=== PATIENT | female | born 1960 | race Caucasian/White ===

== ENCOUNTER → 2024-04-19 | Outpatient (CLI) | payer MEDICARE, OTHER, SELFPAY ==
--- NOTE | 2024-04-19 | XR_ITS ---
Examination: Hand, left 3 views Technique: Hand AP, oblique, lateral 3 views Date and time of exam: April 19, 2024 1242 hours INDICATIONS: Injury to the hand today, hand pain. FINDINGS: Severe osteopenia No acute fracture No dislocation Significant arthritic change first carpometacarpal joint IMPRESSION: No acute fracture
--- NOTE | 2024-04-19 | XR_ITS ---
Examination: Wrist, right 3 views Technique: Wrist AP, oblique, lateral 3 views Date and time of exam: April 19, 2024 1242 hours INDICATIONS: Injured the wrist today, wrist pain. FINDINGS: Prominent osteopenia. No acute fracture No dislocation IMPRESSION: No acute fracture Significant arthritic change first carpometacarpal joint
--- NOTE | 2024-04-19 | XR_ITS ---
Examination: Forearm, left, 2 views. Technique: Forearm, AP, lateral 2 views Date and time of exam: April 19, 2024 1242 hours INDICATIONS: Injury to the forearm today, forearm pain. FINDINGS: Prominent osteopenia No acute fracture No dislocation IMPRESSION: No acute fracture
== END | disposition home or self-care (01) ==
PROVIDERS: PCP Nurse Practitioner Family; Referring Provider Nurse Practitioner Family; Visit Provider Nurse Practitioner Family
DX: M13.842 Other specified arthritis, left hand (principal); S69.92XA Unspecified injury of left wrist, hand and finger(s), initial encounter; S59.912A Unspecified injury of left forearm, initial encounter; X58.XXXA Exposure to other specified factors, initial encounter
CPT/HCPCS: 73090; 73110; 73130

== ENCOUNTER → 2024-04-22 | Outpatient (CLI) | payer MEDICARE, OTHER, SELFPAY ==
--- NOTE | 2024-04-22 15:00 | XR_ITS ---
Examination: Ultrasound soft tissue left lower leg TECHNIQUE: By resolution grayscale sonographic images soft tissue left lower leg Exam date and time: April 22, 2024 1518 hours INDICATIONS: Palpable lump left lower leg noticed beginning 3 weeks 6 FINDINGS: No cystic or solid mass noted IMPRESSION: No cystic or solid mass noted Consider MRI lower leg without contrast follow-up as clinically warranted
== END | disposition home or self-care (01) ==
LOC: CDIM 14:55
PROVIDERS: PCP Family Medicine; Referring Provider Family Medicine; Visit Provider Family Medicine
DX: D17.0 Benign lipomatous neoplasm of skin and subcutaneous tissue of head, face and neck (principal)
CPT/HCPCS: 76882

== ENCOUNTER → 2024-05-10 | Outpatient (CLI) | payer MEDICARE, OTHER, SELFPAY ==
--- NOTE | 2024-05-10 09:31 | XR_ITS ---
Examination: Knee, left , 3 views Technique: Knee AP, lateral, oblique 3 views Date and time of exam: May 10, 2024 0940 hours INDICATIONS: Patient fell yesterday with injury to the knee, knee pain. FINDINGS: Prominent osteopenia Acute fracture inferior patella, 3 mm separation at the fracture site Blood in the joint space IMPRESSION: Acute fracture inferior patella
--- NOTE | 2024-05-10 09:32 | XR_ITS ---
Examination: Tibia-Fibula, left , 2 views Technique: Tibia-fibula AP lateral 2 views Date and time of exam: May 10, 2024 0940 hours INDICATIONS: Patient fell yesterday with injury to lower leg, lower leg pain. FINDINGS: Prominent osteopenia. No acute fracture No dislocation IMPRESSION: No acute tibia fibular fracture Please see the knee report today describing patellar fracture
== END | disposition home or self-care (01) ==
LOC: CDIM 09:22
PROVIDERS: PCP Family Medicine; Referring Provider Nurse Practitioner Family; Visit Provider Nurse Practitioner Family
DX: S82.002A Unspecified fracture of left patella, initial encounter for closed fracture (principal); W19.XXXA Unspecified fall, initial encounter
CPT/HCPCS: 73562; 73590

== ENCOUNTER 2024-07-02 18:20 | Emergency (ER) | payer MEDICARE, OTHER, SELFPAY ==
[2024-07-02 18:29] VITALS: BP 136/84; PULSE 80; RESP 19; TEMP 36.6; O2SAT 96
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
[2024-07-02 19:09] VITALS: PULSE 84; RESP 18; O2SAT 98
[2024-07-02 19:24] VITALS: BMI 19.8
--- NOTE | 2024-07-02 19:50 | PC.NURSE ---
Pt arives to rm handcuffed to primitivo. pt yelling at officers, ED staff and ED MD. pts speech is slurred. pt aggressive, agitated pushing officer and demanding her purse and cell phone. pt only yelling and verbaly abusive to who ever attempts to speak with her. Pt demanded to go to the bathroom. However is thrashing about yelling and cussing at officeres. Pt asked for a bedpan. Female staff entered room and offered bedpan, however refused and began verbaly abuseing ED staff . pt refuseing all treatment. on ASSESSMENT Phas no bruising, swelling, redness deformity abrasions to head neck face chest and arms. pt was belligerent, yelling, verbally abusing and thrashing about pulling on handcuffs.PERRLA...
[2024-07-02 20:02] VITALS: PULSE 89; RESP 18; O2SAT 99
== END 2024-07-02 20:08 ==
PROVIDERS: Emergency Provider Emergency Medicine
DX: Z02.89 Encounter for other administrative examinations (principal); R45.1 Restlessness and agitation
CPT/HCPCS: 99281

== ENCOUNTER → 2024-11-13 | Outpatient (CLI) | payer MEDICARE, OTHER, SELFPAY ==
[2024-11-13 15:37] LABS: Basophils # (Auto) 0.1 Thou/mm3 (0.0-0.2); Basophils % (Auto) 1 % (0-2.5); Eosinophils # (Auto) 0.2 Thou/mm3 (0.0-0.5); Eosinophils % (Auto) 3 % (0-10); Hematocrit 39.4 % (36.0-46.0); Hemoglobin 13.3 g/dL (12.0-16.0); Immature Granulocytes Auto 0.04 Thou/mm3 (0.00-0.00); Lymphocytes # (Auto) 2.6 Thou/mm3 (1.0-4.8); Lymphocytes % (Auto) 43 % (10-50); Mean Corpuscular HGB Conc 33.8 g/dl (31.0-37.0); Mean Corpuscular Hemoglobin 34.3 pg (25.0-35.0); Mean Corpuscular Volume 102 fL (80-100); Monocytes # (Auto) 0.5 Thou/mm3 (0.0-0.8); Monocytes % (Auto) 8 % (0-12); Neutrophils # (Auto) 2.7 Thou/mm3 (1.8-7.7); Neutrophils % (Auto) 44 % (37-80); Nucleated Red Blood Cell # 0.03 Thou/mm3 (0.00-0.00); Nucleated Red Blood Cell % 1 /100 WBC (0); Platelet Count 171 Thou/mm3 (140-440); RDW Standard Deviation 59.7 fL (36.4-46.3); Red Blood Count 3.88 Miln/mm3 (4.00-5.20); White Blood Count 6.1 Thou/mm3 (3.6-11.0)
[2024-11-13 15:48] LABS: Alanine Aminotransferase 20 U/L (10-49); Albumin, Serum 4.2 gm/dL (3.4-4.8); Albumin/Globulin Ratio 2.1 (1.2-2.2); Alkaline Phosphatase 62 U/L (46-116); Anion Gap 6 (7-16); Aspartate Amino Transferase 23 U/L (0-34); BUN/Creatinine Ratio 9 Ratio (12-20); Bilirubin,Total 0.6 mg/dL (0.3-1.2); Blood Urea Nitrogen 8 mg/dL (9-23); Calcium 9.4 mg/dL (8.3-10.6); Calcium (Corrected) 9.4 mg/dL (8.5-10.1); Carbon Dioxide 24.1 mMol/L (20.0-31.0); Chloride 113 mMol/L (98-107); Creatinine (Component) 0.9 mg/dL (0.6-1.3); Globulin 2.0 gm/dL (2.3-3.5); Glucose 89 mg/dL (74-106); Osmolality,Calculated 282 (275-295); Potassium 3.9 mMol/L (3.4-5.1); Sodium 143 mMol/L (136-145); T4 (Thyroxine) 9.0 mcg/dL (4.5-10.9); Thyroid Stimulating Hormone 0.14 uIU/mL (0.55-4.78); Total Protein 6.2 gm/dL (5.7-8.2); eGFR > 60 See Note
== END | disposition home or self-care (01) ==
LOC: COPL 13:55
PROVIDERS: PCP Family Medicine; Referring Provider Family Medicine; Visit Provider Family Medicine
DX: E03.9 Hypothyroidism, unspecified (principal); G35 Multiple sclerosis
CPT/HCPCS: 36415; 80053; 84436; 84443; 85025

== ENCOUNTER 2024-11-16 11:18 | Emergency (ER) | payer MEDICARE, OTHER, SELFPAY ==
--- NOTE | 2024-11-16 11:19 | XR_ITS ---
Examination: Fingers, right 3 views Technique: AP, oblique, lateral views right first digit. Exam date and time: November 16, 2024, 1146 hrs. Indications: Injury to the hand 2 days ago with first digit pain Findings: Severe osteopenia No acute fracture No dislocation No foreign body Old fracture deformity fifth metacarpal Impression: No acute fracture
--- NOTE | 2024-11-16 11:19 | XR_ITS ---
Examination: Wrist, right 3 views Technique: Wrist AP, oblique, lateral 3 views Date and time of exam: November 16, 2004 1148 hrs. Indications: Injury to the wrist 2 days ago with wrist pain. Findings: Prominent osteopenia No acute fracture. No dislocation Impression: No acute fracture
--- NOTE | 2024-11-16 11:21 | PD.EDANIML ---
ED Animal Bite RME/HPI General Chief Complaint: Animal Bite Stated Complaint: Aminah bite to right hand, smashed right thumb Time Seen by Provider: 11/16/24 11:19 Source: patient Arrival date/time: 11/16/24 11:18 Mode of arrival: ambulatory Limitations: no limitations RME / HPI RME / HPI narrative: 64 year old female here today with 2 complaints. 1. Right thumb injury yesterday patient states she was trying to move a mattress in her trailer, it got caught, and she developed diffuse swelling and pain at her thumb. 2. Cat bite right wrist yesterday. She has right wrist pain, erythema, and swelling. She does not recall her last tetanus shot. Related Data Home Medications ?Medication ?Instructions ?Recorded ?Confirmed levetiracetam 500 mg tablet 500 mg PO QDAY #0 tabs 05/01/17 03/30/21 (Keppra) zolpidem 10 mg tablet (Ambien) 10 mg PO HS #0 tabs 05/01/17 03/30/21 Held on 03/30/21. Instructions: Resume on 03/31/21. levothyroxine 100 mcg capsule 110 mcg PO QDAY 03/18/21 03/30/21 (Tirosint) Previous Rx's ?Medication ?Instructions ?Recorded lidocaine 5 % topical patch 1 patch topical QDAY PRN pain #15 07/11/23 ea amoxicillin 875 mg-potassium 1 tab PO BID #14 tabs 11/16/24 clavulanate 125 mg tablet hydrocodone 5 mg-acetaminophen 325 1 tab PO Q8H PRN pain #7 tabs 11/16/24 mg tablet ibuprofen 600 mg tablet 600 mg PO TID PRN pain #20 tabs 11/16/24 Allergies Allergy/AdvReac Type Severity Reaction Status Date / Time gluten Allergy Severe Rash Verified 11/16/24 11:23 latex Allergy Severe Hives Verified 11/16/24 11:23 tizanidine Allergy Severe BLOOD Verified 11/16/24 11:23 PRESSURE LOWERS corn Allergy Mild Rash Verified 11/16/24 11:23 montelukast Allergy Mild Rash Verified 11/16/24 11:23 wheat Allergy Mild Gastrointestinal Verified 11/16/24 11:23 Upset almond Allergy Unknown TONGUE Verified 11/16/24 11:23 SWELLING, RASH soy Allergy Unknown TONGUE Verified 11/16/24 11:23 SWELLING, RASH Review of Systems Review of Systems Systems Reviewed: All systems reviewed, normal except as documented ED Exam General Limitations: Present no limitations General appearance: Present alert and in no apparent distress Head Head exam: Present atraumatic Eye Eye exam: Present normal appearance, PERRL and EOMI ENT ENT exam: Present normal exam, normal oropharynx and mucous membranes moist Neck Neck exam: Present normal inspection, full ROM and trachea midline Chest Chest inspection: Present normal inspection and symmetric chest wall rise Respiratory Respiratory exam: Present normal lung sounds bilaterally Cardiovascular Cardiovascular exam: Present regular rate, normal rhythm and normal heart sounds Abdominal Exam Abdominal exam: Present soft and normal bowel sounds Extremities Exam Extremities exam: Present normal inspection and full ROM Back Exam Back exam: Present normal inspection and full ROM Neurological Exam Neurological exam: Present alert and oriented X3 Psychiatric Psychiatric exam: Present normal affect and normal mood Skin Skin exam: Present warm, dry and other (Small, pinpoint, puncture wounds at the dorsal aspect of the right wrist with surrounding erythema and mild edema. No fluctuance or discharge. The right thumb is mildly edematous with purple discoloration. Skin surface is intact.) Course Quality Measures none Orders Category Date Time Status Splint / Immobilizer STAT Care 11/16/24 13:09 Active XR finger RT min 2V Stat Exams 11/16/24 11:19 Completed XR wrist comp RT min 3V Stat Exams 11/16/24 11:19 Completed CBC Stat Lab 11/16/24 12:06 Completed CMP [Comprehensive Metabolic Panel] Stat Lab 11/16/24 12:06 Completed CRP [C-Reactive Protein] Stat Lab 11/16/24 12:06 Completed Amoxicillin/Pot Clav 875 [Augmentin 875] Med 11/16/24 11:19 Discontinued 1 tab PO X1 ONE HYDROcodone*/APAP 5/325 [Leakey 5/325] Med 11/16/24 11:19 Discontinued 1 tab PO X1 ONE TET,DIP/PERT AC (Adult)-Tdap [Boostrix Adult (Tdap) Med 11/16/24 11:19 Discontinued Vacc] 0.5 ml IMI .ONCE ONE Vital Signs Vital signs: Vital Signs Temperature 97.8 F 11/16/24 11:36 Pulse Rate 76 11/16/24 11:36 Respiratory Rate 18 11/16/24 11:36 Blood Pressure 133/78 H 11/16/24 11:36 Pulse Oximetry (%) 98 11/16/24 11:36 Oxygen Delivery Method Room Air 11/16/24 11:36 Animal Bite MDM Narrative MDM Narrative:: 62-year-old female is here today with 2 separate injuries. She injured her thumb while try to move a mattress in her trailer. She also was bitten by her cat on her right wrist. Plain films were obtained, no acute osseous injury is noted. No soft tissue gas is present. Patient is placed in a thumb spica splint. Post-splint application reveals intact CMS. She was given Leakey for pain. She was started on Augmentin. She agrees to follow-up in clinic next week for close recheck. We discussed close return precautions. She is return as needed for any worsening or emergent changes. Patient data External records reviewed:: None Clinical information provided by:: patient and family Social determinants that could affect healthcare access:: none Patient has the following chronic illnesses:: Hypothyroidism How is presenting disease/condition affected by chronic disease/condition?: uneffected by Evaluation data The following diagnostics were reviewed and interpreted by me:: lab results and radiology exam(s) Lab and/or radiology exams considered but not ordered:: n/a Interpretation Summary: No acute osseous injury. No soft tissue gas Medications / Prescriptions Medications or Prescriptions considered but not ordered:: n/a Medication administrations:: Medication Administration History Discontinued Medications Hydrocodone Bitart/Acetaminophen (Hydrocodone/Apap 5/325 Tablet) 1 tab PO X1 ONE Stop: 11/16/24 11:20 Last Admin: 11/16/24 11:31 Dose: 1 tab Documented By: ED Amoxicillin/Clavulanate Potassium (Amoxicillin/Pot Clav 875 Tablet) 1 tab PO X1 ONE Stop: 11/16/24 11:20 Last Admin: 11/16/24 11:32 Dose: 1 tab Documented By: ED Diphtheria/Tetanus/Acell Pertussis (Diphth,Pertuss(Acell),Tet Vac 0.5 Ml Syr- Adult) 0.5 ml IMi .ONCE ONE Stop: 11/16/24 11:20 Last Admin: 11/16/24 11:32 Dose: 0.5 ml Documented By: ED See above Consultations Consultation(s) initiated? (list below): No Diagnosis Differential diagnosis animal bite: bite by animal and cat bite Most likely diagnosis given after review of the tests above:: Cat bite, cellulitis, thumb contusion Admission Indicated Admission indicated?: not indicated Admission Request Was there a request for admission?: No Disposition Plan Disposition Plan: Discharge Discharge Attestation Discharge Attestation: The patient and all family members were given an opportunity to ask questions and understood the discharge instructions. Discharge instructions specifically effects, indications for sooner follow up or return to the emergency department, and the expected course of current diagnosis. Patient condition: Stable Discharge Plan Plan Patient Disposition: HOME (Self Care) Patient condition on transfer: Stable Prescriptions/Referrals Prescriptions/Med Rec: New amoxicillin-pot clavulanate 875-125 mg tablet 1 tab PO BID Qty: 14 0RF ibuprofen 600 mg tablet 600 mg PO TID PRN (Reason: pain) Qty: 20 0RF hydrocodone-acetaminophen 5-325 mg tablet 1 tab PO Q8H MDD 3 PRN (Reason: pain) Qty: 7 0RF No Action levetiracetam [Keppra] 500 MG tablet 500 mg PO QDAY Qty: 0 zolpidem [Ambien] 10 MG tablet 10 mg PO HS Qty: 0 levothyroxine [Tirosint] 100 mcg capsule 110 mcg PO QDAY lidocaine 5 % adhesive patch,medicated 1 patch topical QDAY PRN (Reason: pain) Qty: 15 0RF Rx Instructions: leave on most painful area for up to 12 hrs Referrals: Leatha Clancy MD [Primary Care Provider] - In 1 week Problem List Clinical Impression: Contusion of right thumb, Cat bite, Cellulitis of right wrist Patient/Caregiver Discharge Instructions Education Materials: ED Cat Bite, ED Cellulitis, ED Contusion, Upper Extremity Additional Instructions: - Use the provided splint and medications. - Apply frequent warm compress. - Please return to the emergency room at anytime for any worsening changes. - Otherwise follow-up with your primary clinic next week for close recheck. Print Language: Cameroonian Stand Alone Forms: [employer] Award Info., Patient Portal Info Letter
[2024-11-16] MEDS: HYDROcodone/APAP 5/325 TABLET 1 TAB PO (11:31)
[2024-11-16] MEDS: AMOXICILLIN/POT CLAV 875 TABLET 1 TAB PO (11:32)
[2024-11-16] MEDS: DIPHTH,PERTUSS(ACELL),TET VAC 0.5 ML SYR- ADULT IMi (11:32)
[2024-11-16 11:36] VITALS: BP 133/78; PULSE 76; RESP 18; TEMP 36.6; O2SAT 98; BMI 19.5
[2024-11-16 12:15] LABS: Basophils # (Auto) 0.1 Thou/mm3 (0.0-0.2); Basophils % (Auto) 1 % (0-2.5); Eosinophils # (Auto) 0.1 Thou/mm3 (0.0-0.5); Eosinophils % (Auto) 2 % (0-10); Hematocrit 39.0 % (36.0-46.0); Hemoglobin 13.7 g/dL (12.0-16.0); Immature Granulocytes Auto 0.04 Thou/mm3 (0.00-0.00); Lymphocytes # (Auto) 2.3 Thou/mm3 (1.0-4.8); Lymphocytes % (Auto) 24 % (10-50); Mean Corpuscular HGB Conc 35.1 g/dl (31.0-37.0); Mean Corpuscular Hemoglobin 34.6 pg (25.0-35.0); Mean Corpuscular Volume 99 fL (80-100); Monocytes # (Auto) 0.7 Thou/mm3 (0.0-0.8); Monocytes % (Auto) 7 % (0-12); Neutrophils # (Auto) 6.3 Thou/mm3 (1.8-7.7); Neutrophils % (Auto) 66 % (37-80); Nucleated Red Blood Cell # 0.03 Thou/mm3 (0.00-0.00); Nucleated Red Blood Cell % 0 /100 WBC (0); Platelet Count 161 Thou/mm3 (140-440); RDW Standard Deviation 56.4 fL (36.4-46.3); Red Blood Count 3.96 Miln/mm3 (4.00-5.20); White Blood Count 9.6 Thou/mm3 (3.6-11.0)
[2024-11-16 12:41] LABS: Alanine Aminotransferase 23 U/L (10-49); Albumin, Serum 4.4 gm/dL (3.4-4.8); Albumin/Globulin Ratio 1.8 (1.2-2.2); Alkaline Phosphatase 68 U/L (46-116); Anion Gap 12 (7-16); Aspartate Amino Transferase 28 U/L (0-34); BUN/Creatinine Ratio 12 Ratio (12-20); Bilirubin,Total 1.7 mg/dL (0.3-1.2); Blood Urea Nitrogen 13 mg/dL (9-23); C-Reactive Protein 0.7 mg/dL (0.0-0.9); Calcium 9.7 mg/dL (8.3-10.6); Calcium (Corrected) 9.7 mg/dL (8.5-10.1); Carbon Dioxide 23.2 mMol/L (20.0-31.0); Chloride 106 mMol/L (98-107); Creatinine (Component) 1.1 mg/dL (0.6-1.3); Estimated Creatinine Clearance 47.5 mL/min (>60); Globulin 2.4 gm/dL (2.3-3.5); Glucose 99 mg/dL (74-106); Osmolality,Calculated 281 (275-295); Potassium 3.9 mMol/L (3.4-5.1); Sodium 141 mMol/L (136-145); Total Protein 6.8 gm/dL (5.7-8.2); eGFR 57 See Note
[2024-11-16 14:31] VITALS: BP 145/80; PULSE 95; RESP 17; TEMP 36.6; O2SAT 98
[2024-11-16 14:41] VITALS: BP 128/78; PULSE 77; RESP 18; TEMP 36.7; O2SAT 98
== END 2024-11-16 14:43 | disposition home or self-care (01) ==
PROVIDERS: Physician Assistant Medical; Emergency Provider Emergency Medicine; PCP Family Medicine
DX: S60.211A Contusion of right wrist, initial encounter (principal); S60.011A Contusion of right thumb without damage to nail, initial encounter; L03.113 Cellulitis of right upper limb; W55.01XA Bitten by cat, initial encounter; Z23 Encounter for immunization
CPT/HCPCS: 29125; 36415; 73110; 73140; 80053; 85025; 86140; 90471; 90715; 99283; A9270

== ENCOUNTER 2024-12-25 12:59 | Emergency (ER) | payer MEDICARE, OTHER, SELFPAY ==
[2024-12-25 13:00] VITALS: BMI 21.4
[2024-12-25 14:23] VITALS: BP 128/85; PULSE 62; RESP 18; TEMP 36.7; O2SAT 99
--- NOTE | 2024-12-25 14:44 | XR_ITS ---
Examination: Wrist, left 3 views Technique: Wrist AP, oblique, lateral 3 views Date and time of exam: December 25, 2024 1445 hours INDICATIONS: Edema swelling and pain involving the wrist 3 days FINDINGS: Significant osteopenia Moderate arthritic change first carpometacarpal joint No fracture No cortical bone destruction IMPRESSION: No cortical bone destruction
--- NOTE | 2024-12-25 14:45 | PD.EDADULT ---
ED General RME/HPI General Chief complaint: Hand/Wrist Problems Stated complaint: INFECTION IN L) WRIST; SENT BY DR. CLANCY Time Seen by Provider: 12/25/24 14:36 Arrival date/time: 12/25/24 12:59 CC: Left palm and hand pain HPI onset 3 days ago progressive increase in severity redness and swelling to drifted from the center of the palm down the lateral medial aspect of the wrist. The patient is complaining of pain that travels up the forearm. She denies any pain in the elbow or axilla. No OTC medicines taken denies fever or chills. Had a recent infection in the right hand secondary to a dog bite which was treated with antibiotics. Denies bump scratch repetitive motion or blunt trauma to the left hand. Localized pain is 6 to an 8 on a 10 scale depending on if there is motion. Related Data Home Medications ?Medication ?Instructions ?Recorded ?Confirmed levetiracetam 500 mg tablet 500 mg PO QDAY #0 tabs 05/01/17 03/30/21 (Keppra) zolpidem 10 mg tablet (Ambien) 10 mg PO HS #0 tabs 05/01/17 03/30/21 Held on 03/30/21. Instructions: Resume on 03/31/21. levothyroxine 100 mcg capsule 110 mcg PO QDAY 03/18/21 03/30/21 (Tirosint) Previous Rx's ?Medication ?Instructions ?Recorded lidocaine 5 % topical patch 1 patch topical QDAY PRN pain #15 07/11/23 ea amoxicillin 875 mg-potassium 1 tab PO BID #14 tabs 11/16/24 clavulanate 125 mg tablet hydrocodone 5 mg-acetaminophen 325 1 tab PO Q8H PRN pain #7 tabs 11/16/24 mg tablet ibuprofen 600 mg tablet 600 mg PO TID PRN pain #20 tabs 11/16/24 amoxicillin 875 mg-potassium 1 tab PO BID #14 tabs 12/25/24 clavulanate 125 mg tablet meloxicam 7.5 mg tablet 7.5 mg PO QDAY #10 tabs 12/25/24 Allergies Allergy/AdvReac Type Severity Reaction Status Date / Time gluten Allergy Severe Rash Verified 12/25/24 13:03 latex Allergy Severe Hives Verified 12/25/24 13:03 tizanidine Allergy Severe BLOOD Verified 12/25/24 13:03 PRESSURE LOWERS corn Allergy Mild Rash Verified 12/25/24 13:03 montelukast Allergy Mild Rash Verified 12/25/24 13:03 wheat Allergy Mild Gastrointestinal Verified 12/25/24 13:03 Upset almond Allergy Unknown TONGUE Verified 12/25/24 13:03 SWELLING, RASH soy Allergy Unknown TONGUE Verified 12/25/24 13:03 SWELLING, RASH Review of Systems Review of Systems Narrative Review of Systems: GEN: No fever, no chills, no weight loss EYES: No discharge, no visual changes, no pain HEENT: No ear pain, no congestion, no sore throat PULM: No shortness of breath, no cough, no congestion CV: No chest pain, no dyspnea on exertion, no palpitations GI: No nausea, no vomiting, no diarrhea, no pain, no constipation : No frequency, no urgency, no dysuria MUSC/SKEL: + joint pain, no back pain SKIN: No rash PSYCH: No hallucinations, no depression HEME/LYMPH: No easy bleeding or bruising tendencies NEURO: No weakness, no headache Past Medical History Past Medical History NEUROLOGIC: Negative Neurological Disorders or Seizures CARDIAC: Positive Hypercholesterolemia (no medications); Negative Cardiac Disorders (sees heart doctor ([facility]) yearly for multiple sclerosis) or Congestive Heart Failure RESPIRATORY: Positive Pneumonia (06/01 used antibiotic no hosp); Negative Chronic Obstructive Pulmonary Disease (COPD) or Asthma GASTROINTESTINAL: Positive Gastrointestinal Disorders, Celiac Disease, Diverticulitis, Diverticulosis, Hiatal Hernia (have for 15 years) and Hemorrhoids GENITOURINARY: Positive Kidney Stones; Negative Genitourinary Disorders or Renal Disease REPRODUCTIVE: Positive Previous Pregnancies (x2) MUSCULOSKELETAL: Positive Fractures (right clavicle to right arm, left achilles tendon, left hand,left knee surg) ENDOCRINE: Positive Endocrine Disorders and Hypothyroidism; Negative Diabetes Mellitus Type 1 or Diabetes Mellitus Type 2 HEMATOLOGIC: Positive Blood Disorders and Anemia; Negative Sickle Cell Disease OTHER HISTORY: Positive Hospitalization, Falls (11/28), Chicken Pox and Measles; Negative Blood Transfusions, Blood Transfusion Reaction or Anesthesia Reactions Family History FAMILY HISTORY: Positive Family Respiratory Disorders (mother), Family Cardiac Disorders (mother) and Family Cancer (mother) Surgical History SURGICAL: Positive Oral Surgery (wisdom teeth), Abdominal Surgery (appendectomy rupture), Arthroscopy (left), Hysterectomy (March 1994) and Tubal Ligation; Negative Cardiac Surgery Social History SMOKING STATUS: Current every day smoker ED Exam Narrative Physical exam: [General: In moderate discomfort but not in any acute distress Head normocephalic HEENT: Eyes pupils are PERRLA EOMs are intact mouth pink moist membranes uvula is midline swallow symmetrical phonation is normal. Within acceptable limits Neck is supple nontender Chest equal chest rise nontender to palpation Respiratory: Clear to auscultation no wheezes crackles or rubs CV: Rate rhythm is regular no murmurs rubs or clicks Abdomen is distended secondary to body habitus soft nontender no masses positive bowel sounds all 4 quadrants Back: No CVA tenderness no spinous process tenderness from cervical spine thoracic and lumbar spine Skin: Subtle erythema with exquisite tenderness to palpation to the medial wrist lateral component. No streaking and there is subtle erythema and palmar tenderness mid palm. No dorsal edema erythema or tenderness. Intact no petechiae rash induration ulceration or crepitus. No streaking or tenderness to the medial arm or in the axilla. Extremities: Left upper extremity, full range of motion of the digits cap refill less than 2 seconds decreased range of motion of the wrist secondary to medial pain. Full range of motion of the elbow and shoulder. Moving all extremity against resistance cap refill less than 2 seconds neurosensory intact Neuro: Awake alert oriented x3 Glascow coma 15 no focal deficits] Course Course Course Narrative: Laboratory results are wholly unimpressive as there is no significant elevation of procalcitonin and WBCs. The patient is a little bit dramatic however will have the patient return in 48 hours and I will reassess her wrist. I do not feel this is a result of her MS low index of suspicion this is infectious however will treat aggressively as if it is infectious process but the patient does not need to be admitted or transferred. Quality Measures none Orders Category Date Time Status Saline [Insert IV] NOW Care 12/25/24 14:40 Active XR wrist comp LT min 3V Stat Exams 12/25/24 14:44 Completed Blood Culture (Lab) Stat Lab 12/25/24 15:08 Received CBC Stat Lab 12/25/24 15:08 Completed CMP [Comprehensive Metabolic Panel] Stat Lab 12/25/24 15:08 Completed CRP [C-Reactive Protein] Stat Lab 12/25/24 15:08 Completed ESR [Sed Rate (ESR)] Stat Lab 12/25/24 15:08 Completed Lactic Acid [Lactate (Lactic Acid)] Stat Lab 12/25/24 15:08 Completed Procalcitonin Stat Lab 12/25/24 15:08 Completed Dexamethasone Inj [Decadron Inj] Med 12/25/24 18:44 Once 10 mg IVP X1 ONE Dexamethasone Inj [Decadron Inj] 10 mg Med 12/25/24 18:43 Discontinued Sodium Chloride 0.9% [Ns] 100 ml IV X1 Piper/Tazo 3.375 gm Premix [Zosyn] Med 12/25/24 14:43 Discontinued 3.375 gm in 50 ml IV X1 Vancomycin/Water 1Gm Ivpb 200 ml Med 12/25/24 14:45 Discontinued IV X1 oxyCODONE/APAP 5/325 [Percocet 5/325] Med 12/25/24 14:48 Discontinued 1 tab PO X1 ONE oxyCODONE/APAP 5/325 [Percocet 5/325] Med 12/25/24 18:43 Discontinued 1 tab PO X1 ONE Vital Signs Vital signs: Vital Signs Temperature 98.0 F 12/25/24 14:23 Pulse Rate 62 12/25/24 14:23 Respiratory Rate 18 12/25/24 14:23 Blood Pressure 128/85 H 12/25/24 14:23 Pulse Oximetry (%) 99 12/25/24 14:23 Oxygen Delivery Method Room Air 12/25/24 14:23 Discharge Plan Plan Patient Disposition: HOME (Self Care) Patient condition on transfer: Stable Prescriptions/Referrals Prescriptions/Med Rec: New amoxicillin-pot clavulanate 875-125 mg tablet 1 tab PO BID Qty: 14 0RF meloxicam 7.5 mg tablet 7.5 mg PO QDAY Qty: 10 0RF No Action levetiracetam [Keppra] 500 MG tablet 500 mg PO QDAY Qty: 0 zolpidem [Ambien] 10 MG tablet 10 mg PO HS Qty: 0 levothyroxine [Tirosint] 100 mcg capsule 110 mcg PO QDAY lidocaine 5 % adhesive patch,medicated 1 patch topical QDAY PRN (Reason: pain) Qty: 15 0RF Rx Instructions: leave on most painful area for up to 12 hrs amoxicillin-pot clavulanate 875-125 mg tablet 1 tab PO BID Qty: 14 0RF ibuprofen 600 mg tablet 600 mg PO TID PRN (Reason: pain) Qty: 20 0RF hydrocodone-acetaminophen 5-325 mg tablet 1 tab PO Q8H MDD 3 PRN (Reason: pain) Qty: 7 0RF Referrals: Leatha Clancy MD [Primary Care Provider] - In 1 week Problem List Clinical Impression: Left wrist pain, Pain and swelling of left wrist Patient/Caregiver Discharge Instructions Other Activity Instructions:: Take the medications as prescribed, return in 48 hours for recheck if is worsening of symptoms do not wear and return sooner otherwise follow-up with your primary care provider. Education Materials: ED Pain, Acute, Uncertain Cause Print Language: French Stand Alone Forms: [employer] Award Info., Patient Portal Info Letter, Work/School Release PA/SUPERINTENDENT Supervising Physician PA/SUPERINTENDENT Supervising Physician: Ambrose OLIVEIRA Clinical Information Provided by patient Medical Records Reviewed [facility] Meds/Rx Considered, not Ordered None Labs/Rad/Tests considered, not Ordered None Chronic Illness/Social Conditions which may negatively complicate care or outcome(s)-explain: None or not applicable EKG EKG not done Lab Interpretation Lab(s) interpretation(s): CBC shows no acute leukocytosis anemia thrombocytopenia CMP shows no acute electrolyte imbalances renal impairment transaminitis or T. bili elevation C-reactive protein 1.2 Procalcitonin at 0.06. Imaging Provider imaging interpretation(s): X-rays interpreted by me read by radiology shows no cortical destruction. Medication Administration(s) Medication Administration History Dexamethasone Sodium Phosphate (Dexamethasone Sod Phos Inj 10 Mg/Ml Vial) 10 mg IVP X1 ONE Stop: 12/25/24 18:45 Discontinued Medications Piperacillin/Tazobactam/Dextrose (Zosyn) 3.375 gm in 50 mls @ 100 mls/hr IV X1 ONE Stop: 12/25/24 15:12 Last Admin: 12/25/24 18:27 Dose: 100 mls/hr Documented By: EF Vancomycin HCl (Vancomycin/Water 1gm Ivpb) 200 mls @ 120 mls/hr IV X1 ONE Stop: 12/25/24 16:24 Dexamethasone Sodium Phosphate (10 mg/ Sodium Chloride) 101 mls @ 101 mls/hr IV X1 ONE Stop: 12/25/24 18:44 Last Admin: 12/25/24 18:45 Dose: Not Given Documented By: EF Non-Admin Reason: Cancelled by Provider Oxycodone/Acetaminophen (Oxycodone/Apap 5/325 Tablet) 1 tab PO X1 ONE Stop: 12/25/24 14:49 Last Admin: 12/25/24 14:56 Dose: 1 tab Documented By: OA Oxycodone/Acetaminophen (Oxycodone/Apap 5/325 Tablet) 1 tab PO X1 ONE Stop: 12/25/24 18:44
[2024-12-25 15:29] LABS: Lactate (Lactic Acid) 1.0 mMol/L (0.4-2.0)
[2024-12-25 15:32] LABS: Basophils # (Auto) 0.1 Thou/mm3 (0.0-0.2); Basophils % (Auto) 1 % (0-2.5); Eosinophils # (Auto) 0.1 Thou/mm3 (0.0-0.5); Eosinophils % (Auto) 1 % (0-10); Hematocrit 41.4 % (36.0-46.0); Hemoglobin 14.0 g/dL (12.0-16.0); Immature Granulocytes Auto 0.03 Thou/mm3 (0.00-0.00); Lymphocytes # (Auto) 3.1 Thou/mm3 (1.0-4.8); Lymphocytes % (Auto) 38 % (10-50); Mean Corpuscular HGB Conc 33.8 g/dl (31.0-37.0); Mean Corpuscular Hemoglobin 33.7 pg (25.0-35.0); Mean Corpuscular Volume 100 fL (80-100); Monocytes # (Auto) 0.8 Thou/mm3 (0.0-0.8); Monocytes % (Auto) 9 % (0-12); Neutrophils # (Auto) 4.0 Thou/mm3 (1.8-7.7); Neutrophils % (Auto) 50 % (37-80); Nucleated Red Blood Cell # 0.03 Thou/mm3 (0.00-0.00); Nucleated Red Blood Cell % 0 /100 WBC (0); Platelet Count 178 Thou/mm3 (140-440); RDW Standard Deviation 53.1 fL (36.4-46.3); Red Blood Count 4.16 Miln/mm3 (4.00-5.20); White Blood Count 8.1 Thou/mm3 (3.6-11.0)
[2024-12-25 15:58] LABS: Alanine Aminotransferase 20 U/L (10-49); Albumin, Serum 4.7 gm/dL (3.4-4.8); Albumin/Globulin Ratio 2.5 (1.2-2.2); Alkaline Phosphatase 71 U/L (46-116); Anion Gap 8 (7-16); Aspartate Amino Transferase 21 U/L (0-34); BUN/Creatinine Ratio 15 Ratio (12-20); Bilirubin,Total 0.7 mg/dL (0.3-1.2); Blood Urea Nitrogen 15 mg/dL (9-23); C-Reactive Protein 1.2 mg/dL (0.0-0.9); Calcium 10.2 mg/dL (8.3-10.6); Calcium (Corrected) 10.2 mg/dL (8.5-10.1); Carbon Dioxide 23.1 mMol/L (20.0-31.0); Chloride 108 mMol/L (98-107); Creatinine (Component) 1.0 mg/dL (0.6-1.3); Estimated Creatinine Clearance 56.7 mL/min (>60); Globulin 1.9 gm/dL (2.3-3.5); Glucose 87 mg/dL (74-106); Osmolality,Calculated 277 (275-295); Potassium 4.0 mMol/L (3.4-5.1); Procalcitonin 0.06 ng/ml (0.0-0.49); Sodium 139 mMol/L (136-145); Total Protein 6.6 gm/dL (5.7-8.2); eGFR > 60 See Note
[2024-12-25 16:06] LABS: Sed Rate (ESR) 4 mm/hr (0-30)
[2024-12-25 18:15] VITALS: BP 139/81; PULSE 60; RESP 16; TEMP 36.5; O2SAT 100
[2024-12-25] MEDS: PIPER/TAZO 3.375 GM PREMIX 3.375 GM/50 ML BAG IV (18:27)
[2024-12-25] MEDS: VANCOMYCIN/WATER 1GM IVPB 200 ML IV (18:58)
[2024-12-25] MEDS: DEXAMETHASONE SOD PHOS INJ 10 MG/ML VIAL IVP (18:58)
[2024-12-25 20:14] VITALS: BP 123/71; PULSE 59; RESP 16; TEMP 36.6; O2SAT 97
== END 2024-12-25 20:54 | disposition home or self-care (01) ==
PROVIDERS: Registered Nurse General Practice; Emergency Provider Family Medicine; PCP Family Medicine
DX: M25.432 Effusion, left wrist (principal)
CPT/HCPCS: 36415; 73110; 80053; 83605; 84145; 85025; 85652; 86140; 87040; 96365; 96366; 96375; 99283; J1100; J2543; J3375; A9270

== ENCOUNTER 2024-12-27 10:11 | Emergency (ER) | payer MEDICARE, OTHER, SELFPAY ==
[2024-12-27 10:12] VITALS: BMI 21.2
[2024-12-27 10:34] VITALS: BP 121/81; PULSE 66; RESP 18; TEMP 36.7; O2SAT 98
--- NOTE | 2024-12-27 10:42 | PD.EDADULT ---
ED General RME/HPI General Chief complaint: Hand/Wrist Problems Stated complaint: LEFT HAND RE-EVALUATION Time Seen by Provider: 12/27/24 10:30 Arrival date/time: 12/27/24 10:11 CC recheck of inflammation and redness to inside of left wrist HPI ongoing for the past 4 days was seen 2 days ago and told to return after IV antibiotics and steroids. Patient states today has been significant improvement is no tenderness in the forearm, the redness in the palm or wrist have decreased however the swelling states the same. Patient denies fever chills shortness of breath or difficulty breathing. Related Data Home Medications ?Medication ?Instructions ?Recorded ?Confirmed levetiracetam 500 mg tablet 500 mg PO QDAY #0 tabs 05/01/17 03/30/21 (Keppra) zolpidem 10 mg tablet (Ambien) 10 mg PO HS #0 tabs 05/01/17 03/30/21 Held on 03/30/21. Instructions: Resume on 03/31/21. levothyroxine 100 mcg capsule 110 mcg PO QDAY 03/18/21 03/30/21 (Tirosint) Previous Rx's ?Medication ?Instructions ?Recorded lidocaine 5 % topical patch 1 patch topical QDAY PRN pain #15 07/11/23 ea amoxicillin 875 mg-potassium 1 tab PO BID #14 tabs 11/16/24 clavulanate 125 mg tablet hydrocodone 5 mg-acetaminophen 325 1 tab PO Q8H PRN pain #7 tabs 11/16/24 mg tablet ibuprofen 600 mg tablet 600 mg PO TID PRN pain #20 tabs 11/16/24 amoxicillin 875 mg-potassium 1 tab PO BID #14 tabs 12/25/24 clavulanate 125 mg tablet meloxicam 7.5 mg tablet 7.5 mg PO QDAY #10 tabs 12/25/24 Allergies Allergy/AdvReac Type Severity Reaction Status Date / Time gluten Allergy Severe Rash Verified 12/27/24 10:12 latex Allergy Severe Hives Verified 12/27/24 10:12 tizanidine Allergy Severe BLOOD Verified 12/27/24 10:12 PRESSURE LOWERS corn Allergy Mild Rash Verified 12/27/24 10:12 montelukast Allergy Mild Rash Verified 12/27/24 10:12 wheat Allergy Mild Gastrointestinal Verified 12/27/24 10:12 Upset almond Allergy Unknown TONGUE Verified 12/27/24 10:12 SWELLING, RASH soy Allergy Unknown TONGUE Verified 12/27/24 10:12 SWELLING, RASH Review of Systems Review of Systems Narrative Review of Systems: GEN: No fever, no chills, no weight loss EYES: No discharge, no visual changes, no pain HEENT: No ear pain, no congestion, no sore throat PULM: No shortness of breath, no cough, no congestion CV: No chest pain, no dyspnea on exertion, no palpitations GI: No nausea, no vomiting, no diarrhea, no pain, no constipation : No frequency, no urgency, no dysuria MUSC/SKEL: + joint pain, no back pain SKIN: No rash PSYCH: No hallucinations, no depression HEME/LYMPH: No easy bleeding or bruising tendencies NEURO: No weakness, no headache Past Medical History Past Medical History NEUROLOGIC: Positive Multiple Sclerosis; Negative Neurological Disorders or Seizures CARDIAC: Positive Hypercholesterolemia; Negative Cardiac Disorders or Congestive Heart Failure RESPIRATORY: Positive Pneumonia; Negative Chronic Obstructive Pulmonary Disease (COPD) or Asthma GASTROINTESTINAL: Positive Gastrointestinal Disorders, Celiac Disease, Diverticulitis, Diverticulosis, Hiatal Hernia and Hemorrhoids GENITOURINARY: Positive Kidney Stones; Negative Genitourinary Disorders or Renal Disease REPRODUCTIVE: Positive Previous Pregnancies MUSCULOSKELETAL: Positive Fractures ENDOCRINE: Positive Endocrine Disorders and Hypothyroidism; Negative Diabetes Mellitus Type 1 or Diabetes Mellitus Type 2 HEMATOLOGIC: Positive Blood Disorders and Anemia; Negative Sickle Cell Disease OTHER HISTORY: Positive Hospitalization, Falls, Chicken Pox and Measles; Negative Blood Transfusions, Blood Transfusion Reaction or Anesthesia Reactions Family History FAMILY HISTORY: Positive Family Respiratory Disorders, Family Cardiac Disorders and Family Cancer Surgical History SURGICAL: Positive Oral Surgery, Abdominal Surgery, Arthroscopy, Hysterectomy and Tubal Ligation; Negative Cardiac Surgery Social History SMOKING STATUS: Current every day smoker ED Exam Narrative Physical exam: [General: Relaxed, not in any acute distress Head normocephalic HEENT: Within acceptable limits Neck is supple nontender Chest equal chest rise nontender to palpation Respiratory: Clear to auscultation no wheezes crackles or rubs CV: Rate rhythm is regular no murmurs rubs or clicks Abdomen is distended secondary to body habitus soft nontender no masses positive bowel sounds all 4 quadrants Back: No CVA tenderness no spinous process tenderness from cervical spine thoracic and lumbar spine Skin: Left wrist medial aspect minimal erythema to the palm and the wrist. No streaking. Intact no petechiae rash induration ulceration or crepitus Extremities: Left upper extremity no tenderness with palpation full range of motion of the left wrist digits cap refill less than 2 seconds neurosensory intact. Moving all other extremities against resistance cap refill less than 2 seconds neurosensory intact Neuro: Awake alert oriented x3 Glascow coma 15 no focal deficits] Course Quality Measures none Vital Signs Vital signs: Vital Signs Temperature 98.1 F 12/27/24 10:34 Pulse Rate 66 12/27/24 10:34 Respiratory Rate 18 12/27/24 10:34 Blood Pressure 121/81 12/27/24 10:34 Pulse Oximetry (%) 98 12/27/24 10:34 Oxygen Delivery Method Room Air 12/27/24 10:34 Discharge Plan Plan Patient Disposition: HOME (Self Care) Patient condition on transfer: Stable Prescriptions/Referrals Prescriptions/Med Rec: No Action levetiracetam [Keppra] 500 MG tablet 500 mg PO QDAY Qty: 0 zolpidem [Ambien] 10 MG tablet 10 mg PO HS Qty: 0 levothyroxine [Tirosint] 100 mcg capsule 110 mcg PO QDAY lidocaine 5 % adhesive patch,medicated 1 patch topical QDAY PRN (Reason: pain) Qty: 15 0RF Rx Instructions: leave on most painful area for up to 12 hrs amoxicillin-pot clavulanate 875-125 mg tablet 1 tab PO BID Qty: 14 0RF ibuprofen 600 mg tablet 600 mg PO TID PRN (Reason: pain) Qty: 20 0RF hydrocodone-acetaminophen 5-325 mg tablet 1 tab PO Q8H MDD 3 PRN (Reason: pain) Qty: 7 0RF amoxicillin-pot clavulanate 875-125 mg tablet 1 tab PO BID Qty: 14 0RF meloxicam 7.5 mg tablet 7.5 mg PO QDAY Qty: 10 0RF Referrals: Michoacano Silva MD [Physician] - In 1 week Problem List Clinical Impression: Encounter for wound re-check Patient/Caregiver Discharge Instructions Other Activity Instructions:: Continue to take the antibiotics and steroids, take a picture of this once every 12 hours follow-up with your primary care in the next 4 days if there is a worsening of symptoms return to the emergency room immediately for further evaluation. Education Materials: ED Cellulitis Print Language: Paraguayan Stand Alone Forms: [employer] Award Info., Work/School Release, Patient Portal Info Letter SERGIO/ADIS Supervising Physician SERGIO/ADIS Supervising Physician: Ambrose OLIVEIRA Clinical Information Provided by patient Medical Records Reviewed [facility] Meds/Rx Considered, not Ordered None Labs/Rad/Tests considered, not Ordered None Chronic Illness/Social Conditions which may negatively complicate care or outcome(s)-explain: None or not applicable EKG EKG not done Lab Interpretation Labs: none Imaging Imaging interpretation: none Medication Administration(s) none Diagnosis Differential diagnosis: Wrist cellulitis, bursitis, osteomyelitis Dispositon Disposition: Discharge Home
== END 2024-12-27 10:57 | disposition home or self-care (01) ==
LOC: SERX 11:11
PROVIDERS: Emergency Provider Family Medicine; PCP Registered Nurse General Practice
DX: Z48.00 Encounter for change or removal of nonsurgical wound dressing (principal)
CPT/HCPCS: 99282